=== PATIENT | female | born 1960 | race Caucasian/White ===

== ENCOUNTER 2023-08-30 09:22 | Observation (INO) ==
--- NOTE | 2023-07-26 13:38 | PAT Medication Instructions ---
Medication Instructions Date of Service July 26, 2023 Home Medications albuterol sulfate 90 mcg/actuation aerosol inhaler (Ventolin HFA) 2 inh inhalation QID PRN amlodipine 5 mg tablet 5 mg PO QAM cholecalciferol (vitamin D3) 25 mcg (1,000 unit) tablet (Vitamin D3) 25 mcg PO QPM escitalopram oxalate 20 mg tablet (Lexapro) 20 mg PO QAM furosemide 20 mg tablet (Lasix) 20 mg PO QAM levothyroxine 100 mcg tablet 100 mcg PO QAM metformin 500 mg tablet 500 mg PO BID omeprazole 40 mg capsule,delayed release 40 mg PO HS potassium chloride 10 mEq tablet,extended release 10 meq PO QAM rosuvastatin 10 mg tablet (Crestor) 10 mg PO HS DO NOT take the morning of surgery furosemide 20 mg tablet (Lasix) 20 mg PO QAM metformin 500 mg tablet 500 mg PO BID potassium chloride 10 mEq tablet,extended release 10 meq PO QAM Take morning of surgery With a small sip of water, OTHERWISE NOTHING TO EAT OR DRINK AFTER MIDNIGHT: albuterol sulfate 90 mcg/actuation aerosol inhaler (Ventolin HFA) 2 inh inhalation QID PRN(use if needed; please bring with you to hospital day of surgery if possible) amlodipine 5 mg tablet 5 mg PO QAM escitalopram oxalate 20 mg tablet (Lexapro) 20 mg PO QAM levothyroxine 100 mcg tablet 100 mcg PO QAM Take evening before surgery albuterol sulfate 90 mcg/actuation aerosol inhaler (Ventolin HFA) 2 inh inhalation QID PRN(if needed) cholecalciferol (vitamin D3) 25 mcg (1,000 unit) tablet (Vitamin D3) 25 mcg PO QPM metformin 500 mg tablet 500 mg PO BID omeprazole 40 mg capsule,delayed release 40 mg PO HS rosuvastatin 10 mg tablet (Crestor) 10 mg PO HS Other Notes If you have any questions please call us at [phone] or [phone] or [phone] or [phone]
--- NOTE | 2023-08-01 13:24 | Anesthesiology Consultation ---
Date of Service August 01, 2023 Assessment & Plan (1) Encounter for pre-operative examination: - Check BSG AM DOS - Infectious disease screening: Per assessment on 08/01/23: No known infectious disease contacts or current infectious disease symptoms. No noted recent Covid positive test result. - Outpatient joint assessment: Pt currently scheduled for inpatient pathway. If surgeon requests review for outpatient joint pathway, patient is not recommended acceptable candidate for outpatient joint program from anesthesia standpoint based upon available information. - Highly selective vagotomy (1988): Done for hx stomach ulcers. Per patient, did have subsequent episode of HR fluctuations felt r/t to having this procedure (10+ years ago)- no known issues since. Preop EKG done 08/01/23: NSR with sinus arrhythmia at 64bpm. - Patient states she has upcoming visit with PCP prior to surgery. Patient acceptable risk for surgery pending upcoming PCP office visit (Dr. Ayaka Montoya, appt 08/05). Chart Review Chart Review: Acceptable Risk for Surgery and Patient seen in Pre Admission Testing Teaching & Discussion Pre-Anesthesia Teaching/Discussion Notes: Instructed NPO after midnight before surgery,except medications with 15 cc of water. Medication instructions provided according to the PAT guidelines. History Surgery Operation Date: 08/30/23 07:15 Proposed Procedures p Left Total Knee Arthroplasty - Jean-Pierre Srinivasan DO Height/Weight Height: 5 ft 0.5 in Weight: 97.7 kg Allergies Allergy/AdvReac Type Severity Reaction Status Date / Time adhesive Allergy Intermediate Skin Verified 07/27/23 11:46 irritation bupropion Allergy Intermediate Headache Unverified 07/27/23 11:46 (per PCP records) NSAIDS (Non-Steroidal AdvReac Severe Unable to Verified 07/27/23 11:46 Anti-Inflamma take d/t hx duodenal ulcer Medications Home Medications Medication Instructions Recorded Confirmed Last Taken albuterol sulfate 90 mcg/actuation 2 inh inhalation QID PRN sob 07/26/23 07/26/23 Unknown aerosol inhaler (Ventolin HFA) amlodipine 5 mg tablet 5 mg PO QAM 07/26/23 07/26/23 Unknown cholecalciferol (vitamin D3) 25 25 mcg PO QPM 07/26/23 07/26/23 Unknown mcg (1,000 unit) tablet (Vitamin D3) escitalopram oxalate 20 mg tablet 20 mg PO QAM 07/26/23 07/26/23 Unknown (Lexapro) furosemide 20 mg tablet (Lasix) 20 mg PO QAM 07/26/23 07/26/23 Unknown levothyroxine 100 mcg tablet 100 mcg PO QAM 07/26/23 07/26/23 Unknown metformin 500 mg tablet 500 mg PO BID 07/26/23 07/26/23 Unknown omeprazole 40 mg capsule,delayed 40 mg PO HS 07/26/23 07/26/23 Unknown release potassium chloride 10 mEq 10 meq PO QAM 07/26/23 07/26/23 Unknown tablet,extended release rosuvastatin 10 mg tablet (Crestor) 10 mg PO HS 07/26/23 07/26/23 Unknown Past Medical History Medical History Asthma Chronic back pain Depression Diabetes mellitus, type 2 NIDDM GERD (gastroesophageal reflux disease) History of COVID-19 07/2022: moderate flu-like symptoms Hx of basal cell carcinoma Hx of duodenal ulcer (~1988) Hyperlipidemia Hypertension Hypothyroidism Kidney stones no surgical intervention 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 Osteoarthritis Sleep apnea CPAP (compliant) Exercise / Class Metabolic Activity III < 4 Walking/Shop/Light housework (one FS (no CP, + SOB)) Past Family History Family History Father FHx: heart disease Other No family history of adverse response to anesthesia Past Surgical History Surgical History H/O vagotomy highly selective vagotomy (1988) for stomach ulcers Per patient, did have subsequent episode of HR fluctuations felt r/t to having this procedure (10+ years ago)- no issues since History of section x2 (2001, 2003) History of colonoscopy History of esophagogastroduodenoscopy (EGD) History of laparoscopy History of right knee joint replacement Hx of basal cell carcinoma excision Past Anesthesia History No Hx of Anesthesia Complications and No Family Hx of Anesthesia Complications History of PONV No Hx of PONV and No Hx of Motion Sickness Social History Smoking Status: Former smoker Do You Dip or Chew Tobacco: No Smoking End Date: Quit 1998 Hx Alcohol Use: Yes (Very rare) Hx Substance Use: No substance use type: does not use Review of Systems Patient denies chest pain, shortness of breath, fever, chills, cough, wheezing, palpitations. Physical Exam Vital Signs VITALS BP 128/87 P 68 TEMP 98.2 SP02 97%RA RESP 18 PHYSICAL Full cervical extension range of motion. Full TMJ range of motion. TMD 3.5 finger breaths Mallampati Score 3 Dentition: missing molars Lungs: clear throughout to auscultation Cardiac: regular rate and rhythm, no murmurs noted Spine: normal Carotid arteries: negative bruit Extremities: no LE edema Lab Results Anesthesia Preop Results Results Anesthesia Widget: WBC 8.67 K/ul (4.8-10.8) 08/01/23 Hgb 13.3 g/dl (12.0-16.0) 08/01/23 Hct 39.3 % (37.0-47.0) 08/01/23 Plt 261 K/uL (130-400) 08/01/23 Na 140 mmol/L (136-145) 08/01/23 K 3.7 mmol/L (3.5-5.1) 08/01/23 Cl 103 mmol/L (98-107) 08/01/23 CO2 27 mmol/L (21-32) 08/01/23 BUN 11 mg/dl (6-23) 08/01/23 Creat 0.64 mg/dl (0.6-1.2) 08/01/23 Glucose Level 176 mg/dl (70-99(Fasting)) H 08/01/23 PT 10.5 Seconds (9.0-12.0) 08/01/23 PTT 29 Seconds (21-31) 08/01/23 INR 1.0 (0.9-1.1) 08/01/23 HA1c 7.2 % (4.5-5.6) H 08/01/23 Urine Color Yellow 08/01/23 Urine Appearance Clear (Clear) 08/01/23 Urine pH 7.5 (4.5-7.5) 08/01/23 Urine Specific [place] 1.008 (1.000-1.030) 08/01/23 Urine Protein Negative (Negative) 08/01/23 Urine Glucose (UA) Negative (Negative) 08/01/23 Urine Ketones Negative (Negative) 08/01/23 Urine Blood Negative (Negative) 08/01/23 Urine Nitrite Negative (Negative) 08/01/23 Urine Bilirubin Negative (Negative) 08/01/23 Urine Urobilinogen Negative (Negative) 08/01/23 Urine Leukocyte Esterase Trace (Negative) H 08/01/23 Blood Type O Positive 08/01/23 Antibody Screen NEGATIVE 08/01/23 Testing Electrocardiogram Date: 08/01/23 NSR with sinus arrhythmia at 64bpm. NS TWA. Chest X-Ray Date: 08/01/23 Findings: + NAD
--- NOTE | 2023-08-05 13:10 | History & Physical Report ---
Date of Service August 05, 2023 date of surgery: 08/30/23 Procedure: Left Total Knee Arthroplasty Surgeon: Jean-Pierre Srinivasan, DO Assessment & Plan (1) Arthritis of knee, left: Plan: Further care discussed with patient and at this point in time has failed conserv ative measures and would like to proceed with a left total knee replacement. Plan on discharge will be home with home health physical therapy. DVT prophylaxiswith TEDs, SCDs and will also place on aspirin 81 mg p.o. b.i.d. for a month postop. Patient will have follow up appointment in our office two weeks post op for staple/suture removal and re-evaluation. Patient otherwise has no other questions or concerns. The risks and benefits have been discussed including, but not limited to, risk of infection, nerve injury, stiffness, loss of motion, failure to improve, etc. Reasonable outcomes and options of treatment were discussed. An explanation of appropriate alternatives to the procedure that may be advantageous were discussed and their risks and benefits, as well as the risks and benefits of not proceeding with treatment. I offered to answer any additional inquiries concerning the treatment involved. All the patient's questions were answered. The patient is agreeable, understanding of the treatment plan and alternatives, and wishes to proceed with the treatment plan. Please note the above document was generated using voice recognition software. It may contain grammatical, syntax or spelling errors. Any formal questions or concerns about the content, text or information contained within the body of this dictation should be directly addressed to the provider for clarification History of Present Illness Chief Complaint: left knee pain Primary Care Provider: Korey Rousseau is a 63-year-old female who presented for preop evaluation prior to upcoming left total knee arthroplasty. She had a longstanding history of left knee pain which is gradually worsened and is now affecting her daily activities including walking standing using stairs. She has undergone previous corticosteroid injection with no improvement, she is not able to take anti- inflammatories due to history of duodenal ulcer. At this point time she has failed conservative measures and wishes to proceed with a left total knee replacement Allergies Allergy/AdvReac Type Severity Reaction Status Date / Time adhesive Allergy Intermediate Skin Verified 07/27/23 11:46 irritation bupropion Allergy Intermediate Headache Unverified 07/27/23 11:46 (per PCP records) NSAIDS (Non-Steroidal AdvReac Severe Unable to Verified 07/27/23 11:46 Anti-Inflamma take d/t hx duodenal ulcer Home Medications Medication Instructions Recorded Confirmed Type albuterol sulfate 90 mcg/actuation 2 inh inhalation QID PRN sob 07/26/23 07/26/23 History aerosol inhaler (Ventolin HFA) amlodipine 5 mg tablet 5 mg PO QAM 07/26/23 07/26/23 History cholecalciferol (vitamin D3) 25 25 mcg PO QPM 07/26/23 07/26/23 History mcg (1,000 unit) tablet (Vitamin D3) escitalopram oxalate 20 mg tablet 20 mg PO QAM 07/26/23 07/26/23 History (Lexapro) furosemide 20 mg tablet (Lasix) 20 mg PO QAM 07/26/23 07/26/23 History levothyroxine 100 mcg tablet 100 mcg PO QAM 07/26/23 07/26/23 History metformin 500 mg tablet 500 mg PO BID 07/26/23 07/26/23 History omeprazole 40 mg capsule,delayed 40 mg PO HS 07/26/23 07/26/23 History release potassium chloride 10 mEq 10 meq PO QAM 07/26/23 07/26/23 History tablet,extended release rosuvastatin 10 mg tablet (Crestor) 10 mg PO HS 07/26/23 07/26/23 History Past Med/Surg History Medical History 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 History of COVID-19 07/2022: moderate flu-like symptoms Depression Kidney stones no surgical intervention Chronic back pain Osteoarthritis Hx of basal cell carcinoma Hypertension Hyperlipidemia Hx of duodenal ulcer (~1988) Hypothyroidism Diabetes mellitus, type 2 NIDDM GERD (gastroesophageal reflux disease) Asthma Sleep apnea CPAP (compliant) Surgical History History of esophagogastroduodenoscopy (EGD) History of colonoscopy Hx of basal cell carcinoma excision History of right knee joint replacement History of section x2 (2001, 2003) History of laparoscopy H/O vagotomy highly selective vagotomy (1988) for stomach ulcers Per patient, did have subsequent episode of HR fluctuations felt r/t to having this procedure (10+ years ago)- no issues since Family History Father FHx: heart disease Other No family history of adverse response to anesthesia Social History Smoking Status: Former smoker Tobacco Type: Cigarettes Second Hand Exposure: No; Do You Dip or Chew Tobacco: No; Hx Alcohol Use: Yes (Very rare) Hx Substance Use: No Preferred Language: [place] Communication Ability: Effective Supervisor Picking Crew Required: No Beliefs That Will Affect Care: None Current Living Situation: Spouse Feels Safe at Home: Yes Assistive Devices: Glasses Review of Systems Review of Systems: All systems reviewed & are unremarkable except as noted in HPI & below Constitutional: no fever, no chills and no sweats Respiratory: no cough and no dyspnea Cardiovascular: no chest pain, no dyspnea and no orthopnea Gastrointestinal: no abdominal pain, no nausea and no vomiting Musculoskeletal: as per Subjective / HPI Physical Exam Physical Exam: HT: 5ft WT: 97.7kg Constitutional: WD/WN, vitals as above no acute distress Respiratory: normal respiratory effort, lungs clear to auscultation no respiratory distress, no labored breathing and does not use accessory muscles Cardiovascular: RRR, no murmur, no edema Gastrointestinal (Abdomen): normal bowel sounds, soft, nontender, no hepatosplenomegaly Musculoskeletal: Knee: + knee abnormal to inspection (LEFT KNEE), + effusion (+1 effusion), + limited ROM of knee (ROM 0/3/110), + knee ROM with crepitation, + joint line tenderness (medial joint line) and + Genoveva's sign positive; no deformity, no skin erythema, no ecchymosis, no valgus laxity, no varus laxity, anterior drawer test negative, Alvino's sign negative and pivot shift test negative Results & Data Results & Data Diagnostic Findings Left Knee X-ray: left knee series confirms degenerative changes to the left knee, greatest medial compartments and patellofemoral joint, showing joint space narrowing, osteophyte formation and subchondral sclerosis. no acute bony pathology noted.
[~2023-08-30 09:22] MED LIST: BUPIVACAINE 0.5 % 5 MG/1 ML PF 10ML VIAL ONE; ROPIVACAINE 0.5% 5 MG/ML 30 ML VIAL ONE
--- OUTSIDE RECORDS SUMMARY | 2023-08-30 09:26 | External Medical Summary ---
Author Name Unknown Address Unknown Organization [id number]:[facility] [place] [address] [place] [id number] Laboratory Report Ordering Provider Test Date Status NGOC SANCHES 08/05/2023 11:00:00 Final Observation Date Value Abnormality Reference (Units) Status Bacteria identified in Specimen by Culture 08/05/2023 11:00:00 No significant growth Final Test: Culture, Urine, Quant itative
Specimen Source: Urine, Unspecified
Specimen Type: Urine
Specimen Date: 08/05/2023 11:00 AM
Result Date: 08/06/2023 2:33 PM
Result Status: Final result
Resulting Lab: [facility] [place]
[address]
[place] [id number]

CULTURE

No significant growth

null Performing Location [facility] [place] [facility] [address] [facility] [id number]
--- NOTE | 2023-08-30 09:41 | History & Physical Bridge Note ---
Date of Service August 30, 2023 History & Physical Bridge Note I have examined the patient, reviewed the History & Physical and in the interval since the performance of the History & Physical I have noted the following changes of clinical significance: no changes noted
[2023-08-30] MEDS: LR 15ML/HR IV SCH (10:22)
[2023-08-30] MEDS: GABAPENTIN 300 MG CAP PO SCH (10:23)
[2023-08-30] MEDS: FAMOTIDINE 20 MG TAB PO SCH (10:23)
[2023-08-30] MEDS: LR 60ML/HR IV SCH (10:23)
[2023-08-30] MEDS: ACETAMINOPHEN 500 MG TAB PO SCH ×2 (10:23→21:27)
[2023-08-30] MEDS: dexAMETHasone**PF** 10 MG/ML VIAL IV SCH (10:24)
[2023-08-30] MEDS: METOCLOPRAMIDE HCL 10 MG TABLET PO SCH (10:24)
[2023-08-30] MEDS ORDERED: MIDAZOLAM HCL 1 MG/ML 2ML VIAL ONE (10:55)
[2023-08-30] MEDS ORDERED: fentaNYL citrate PF 100 MCG/2 ML VIAL ONE (10:56)
[2023-08-30] MEDS ORDERED: PROPOFOL IV EMULSION 10 MG/ML 20 ML VIAL IV ONE (11:17)
[2023-08-30] MEDS ORDERED: LIDOCAINE 2% 2 ML VIAL/AMP(20MG/ML) INFIL ONE (11:17)
[2023-08-30] MEDS ORDERED: ONDANSETRON INJ 2 MG/ML 2 ML VIAL IV PRN ×2 (11:55→16:05)
[2023-08-30] MEDS ORDERED: HYDROmorphone INJ 2 MG/ML SYR/VIAL IV PRN (11:55)
[2023-08-30] MEDS ORDERED: fentaNYL citrate PF 100 MCG/2 ML VIAL IV PRN (11:55)
[2023-08-30] MEDS ORDERED: ePHEDrine sulfate 50 MG/ML AMP IV PRN (11:55)
[2023-08-30] MEDS ORDERED: PROMETHAZINE HCL 6.25 MG in SODIUM CHLORIDE 0.9% 50 ML IV PRN (11:55)
[2023-08-30] MEDS ORDERED: ATROPINE SULFATE 0.1 MG/ML 10ML SYR IV PRN (11:55)
[2023-08-30] MEDS: TRANEXAMIC ACID 1,000 MG **IV Pre-op IV SCH (12:06)
[2023-08-30] MEDS: ROPIV 0.5% 246mg, Ketorolac 30mg, EPINEPHrine 0.5mg in NSS INFIL SCH (13:01)
--- NOTE | 2023-08-30 13:25 | Operative Report ---
Post Operative Report Pre & Post Diagnosis Operation Date: 08/30/23 11:15 Pre-Op Diagnosis: Left Knee Osteoarthritis Post-Op Diagnosis: Left Knee Osteoarthritis I identified the patient and participated in the time-out.: Yes Procedure Operation Date: 08/30/23 11:15 Actual Procedures p Left Total Knee Arthroplasty(Left)Utilizing [employer] journey 2 patient- matched total knee arthroplasty size femur 4 tibia 2 poly 11 patella 29 jaycob - Jean-Pierre Srinivasan DO Surgeon Jean-Pierre Srinivasan DO Social Welfare Clerk [place] Estimated Blood Loss 5 Findings Consistent with Post-Op Diagnosis Patient presents with severe end-stage tricompartmental DJD of the left knee with hyperextension of approximately 7 degrees eburnated [id number] marginal osteophytes subchondral cystic changes with moderate to large effusion Specimens Bone and cartilage Drains Medium bore Hemovac Anesthesia Type MAC Spinal Regional Complications none Disposition Accompanied Patient To Recovery: No Disposition: Recovery Room Indications Patient presents with a left knee severe end-stage tricompartmental DJD having failed attempted conservative management occluding physical therapy anti- inflammatories relative rest activity modification corticosteroid injections viscosupplementation above intraoperative findings were noted Description of Procedure After proper prepping and draping of the left lower extremity anterior midline incision was made over the region of the extensor extensor mechanism after meticulous hemostasis was obtained and maintained in subcutaneous tissues a medial parapatellar incision was made The patella was subluxed lateralward the medial lateral gutter were cleaned from any hypertrophic synovitis and scar tissue of the distal femoral block was placed and the distal femoral osteotomy cut was made subsequently the chamfers anterior and posterior osteotomy cuts were made utilizing the 4-in-1 block the tibia was subsequently subluxed anteriorward medial and ateral meniscal remnants were excised in their entirety remnants of the anterior and posterior cruciate ligaments were excised in their entirety excellent exposure of the proximal tibia was obtained the tibial osteotomy guide was placed on the proximal tibial osteotomy cut was made once again the knee was irrigated with copious amounts of sterile saline solution the patella was subsequently everted lateralward thickened scar tissue around the patella was removed the patella was subsequently cut utilizing a freehand technique and was drilled prepared for final preparation and placement of patella socially flexion-extension gaps were checked and the equal and symmetric trials were placed to the appropriate femoral and tibial trials with poly-spacer being placed for equal flexion and extension gaps and full range of motion including extension to 0 and flexion to 140 the trial components after having been taken to recovery range of motion was subsequently removed meticulous hemostasis was obtained and maintained subsequently a knee block injection of joint cocktail including ropivacaine 0.5% 150 mg. Bupivacaine 0.5% epinephrine 1-200,030 mL's toradol 30 mg dexamethasone 4 mg ketamine 10 mg clonidine 100 micrograms normal saline solution 30 mg was infiltrated into the soft tissues of the posterior knee medial lateral gutters and periosteal synovium special attention was paid to protect neurovascular structures at all times subsequently trial components having been removed the knee was irrigated with sterile saline solution. debris was removed the proximal tibia was subsequently prepared and was made ready for the placement of the tibial component tibial component was also cemented and tamped into position the femoral component was subsequently placed and cemented in the position the patellar component was subsequently cemented in position because hemostasis once again obtained and maintained wound having been thoroughly irrigated with debridement and debridement lavage was performed as well as a medial parapatellar incision closed with #1 Vicryl in interrupted fashion subcutaneous was closed with #2 Vicryl skin was closed with skin clips. PA-C was necessary for prepping and drapping as well as wound closure of deep fascia Sub cutaneous tissue and skin and was necessary for the case. A sterile compressive dressing was placed patient was taken to recovery in stable condition of report dictated by Craig I attest to the content of the Intraoperative Record and any orders documented therein. Any exceptions are noted below.Due to the complex nature of the procedure, the entire surgery was performed with the operational assistance ofFELICITY Pacheco. The logistics assistant, under direct supervision, was involved in the actual performance of all aspects of the surgical procedure including hemostasis, tissue retraction and incision, instrument management, patient positioning, and wound closure. I attest to the content of the Intraoperative Record and any orders documented therein. Any exceptions are noted below.
--- NOTE | 2023-08-30 14:41 | XRay Report ---
LEFT KNEE 2 VIEWS History: Left total knee arthroplasty. Degenerative arthritis. Postop. FINDINGS: The patient is status post a left total knee arthroplasty. The hardware is intact. No fract ure or dislocation. Skin german and surgical drains are in place. IMPRESSION: Left total knee arthroplasty. No evidence for hardware complication. ACT 112: Negative or not required by law. Electronically signed by: Lior Riley M.D. 08/30/2023 2:40 PM
--- NOTE | 2023-08-30 14:55 | Anesthesiology Progress Note ---
Date of Service August 30, 2023 Anesthesia Post Procedure Vital Signs Vital Signs: Temp Pulse Pulse Resp BP Pulse Ox O2 Del Method 08/30/23 14:50 73 16 118/69 96 Nasal Cannula 08/30/23 14:40 36.6 C 68 16 113/75 96 Nasal Cannula 08/30/23 14:30 72 16 125/75 96 Nasal Cannula 08/30/23 14:20 75 16 126/78 96 Nasal Cannula 08/30/23 14:10 74 15 124/69 97 Nasal Cannula 08/30/23 14:00 77 16 101/68 97 Oxymask 08/30/23 13:54 36.8 C 77 17 104/67 96 Oxymask 08/30/23 09:55 Room Air 08/30/23 09:55 36.7 C 60 20 128/83 95 Room Air O2 Flow Rate 08/30/23 14:50 2 08/30/23 14:40 2 08/30/23 14:30 2 08/30/23 14:20 2 08/30/23 14:10 2 08/30/23 14:00 5 08/30/23 13:54 5 08/30/23 09:55 08/30/23 09:55 Transfer of Care Handoff Completed per policy Notes Mental Status: alert / awake / arousable Patient Amnestic to Procedure: Yes Nausea / Vomiting: adequately controlled Pain: adequately controlled Airway Patency, RR, SpO2: stable & adequate BP & HR: stable & adequate Hydration State: stable & adequate Neuraxial Anesthesia: was administered and sensory block is resolving Anesthetic Complications: no major complications apparent
[2023-08-30] MEDS: ORTHO JOINT ANESTHETIC ONE (16:04)
[2023-08-30] MEDS: TRANEXAMIC ACID 1,000 MG **IV Intra-op IV SCH (16:04)
[2023-08-30] MEDS: ceFAZolin 2000MG 2,000 MG/15 ML SYR IV SCH ×2 (16:04→18:49)
[2023-08-30] MEDS ORDERED: METOCLOPRAMIDE HCL INJ 5 MG/ML 2 ML VIAL IV PRN (16:05)
[2023-08-30] MEDS ORDERED: MAGNESIUM HYDROXIDE SUSP 30 ML UDC PO PRN (16:05)
[2023-08-30] MEDS ORDERED: ALBUTEROL HFA 8 GM INHALER INH PRN (16:05)
[2023-08-30] MEDS ORDERED: HYDROmorphone INJ 1 MG/ML SYRINGE IV PRN (16:05)
[2023-08-30] MEDS ORDERED: bisacodyL 10 MG SUPP PR PRN (16:05)
[2023-08-30] MEDS ORDERED: NALOXONE HCL 0.4 MG/1 ML VIAL/CARP IV PRN (16:05)
[2023-08-30] MEDS ORDERED: PHARMACY GLYCEMIC MGMT CONSULT PRN (16:05)
[2023-08-30] MEDS ORDERED: diphenhydrAMINE Capsule 25 MG CAP PO PRN (16:05)
[2023-08-30] MEDS: SODIUM CHLORIDE 0.9% 1,000 ML IV SCH (16:44)
[2023-08-30] MEDS: KETOROLAC TROMETHAMINE 15 MG/ML VIAL IV SCH (16:45)
[2023-08-30] MEDS: INSULIN ASPART PER UNIT CHARGE SC SCH (17:33)
[2023-08-30] MEDS: ASPIRIN 81 MG ECTAB PO SCH (20:07)
[2023-08-30] MEDS: CHOLECALCIFEROL 25 MCG (1000 UNITS) TAB PO SCH (20:07)
[2023-08-30] MEDS: SENNA 8.6 MG TAB PO SCH (20:08)
[2023-08-30] MEDS: ROSUVASTATIN CALCIUM 10 MG TAB PO SCH (20:08)
[2023-08-30] MEDS: DOCUSATE SODIUM 100 MG CAP PO SCH (20:08)
[2023-08-30] MEDS: LANTUS PER UNIT CHARGE SC SCH (21:23)
[2023-08-30] MEDS: oxyCODONE HCL IR 5 MG TAB (IMMEDIATE RELEASE) PO PRN (23:25)
[2023-08-31] MEDS: INSULIN ASPART PER UNIT CHARGE SC SCH (00:16)
[2023-08-31 06:28] LABS: Hematocrit (blood only) 31.7 % (37.0-47.0); Hemoglobin 10.3 g/dl (12.0-16.0); Mean Corpuscular Hemoglobin 28.5 pg (25.0-34.0); Mean Corpuscular Hgb Conc 32.5 g/dL (32.0-36.0); Mean Corpuscular Volume 87.6 fL (80.0-100.0); Mean Platelet Volume 10.5 fL (9.4-12.4); Platelet Count 239 K/uL (130-400); RDW Coefficient of Variation 12.2 % (11.5-14.5); RDW Standard Deviation 39.4 fL (36.4-46.3); Red Blood Count 3.62 M/uL (4.20-5.40); White Blood Count 16.31 K/ul (4.8-10.8)
[2023-08-31 06:40] LABS: Calcium 8.5 mg/dl (8.6-10.3); Creatinine Clr Calc Pharmacy 107.9 ml/min; Est GFR (African American) 115.8 ml/min; Est GFR (Non-African American) 99.9 ml/min
--- NOTE | 2023-08-31 06:44 | Orthopedic Progress Note ---
Date of Service August 31, 2023 Assessment & Plan (1) History of total left knee replacement: Plan: POD #1 s/p Left TKA pt/ot dvt proph with VALERI/SCD/ASA plan for d/c home with HHPT if available Admission and Anticipated Discharge Date Admission Date: August 30, 2023 Subjective POD #1 s/p Left TKA Review of Systems Constitutional: no fever, no chills and no sweats Respiratory: no cough and no dyspnea Cardiovascular: no chest pain and no dyspnea Gastrointestinal: no abdominal pain, no nausea and no vomiting Physical Exam Physical Exam: Vital Signs Temp 36.8 C 08/31/23 03:23 Pulse 74 08/31/23 03:23 Resp 16 08/31/23 03:23 BP 110/66 08/31/23 03:23 Pulse Ox 96 08/31/23 03:23 O2 Del Method Room Air, CPAP 08/31/23 03:23 O2 Flow Rate 1 08/30/23 17:57 Intake & Output 08/30/23 08/30/23 08/31/23 06:59 18:59 06:59 Intake Total 2000 / 3800 1800 / 3800 Output Total 65 / 1140 1075 / 1140 Balance 1935 / 2660 725 / 2660 Weight 95.8 kg Intake: IV 100 / 1100 1000 / 1100 Lactated Ringe r's 1,000 ml @ 15 0 / 0 mls/hr IV .Q24 H KEYONNA Rx#: [id number] Sodium Chlorid e 0.9% 1,000 ml @ 1000 / 1000 100 mls/hr IV .Q10H KEYONNA Rx#: [id number] Tranexamic Aci d / 0.7% NaCl 1, 100 / 100 000 mg In 100 ml @ 600 mls/hr IV TODAY@0600 KEYONNA Rx#:[id number] IV Perioperative 1900 / 1900 Oral 800 / 800 Output: Urine 1000 / 1000 Estimated Blood Loss 5 / 5 Drain Output 60 / 135 75 / 135 Left Knee Hemo vac 60 / 135 75 / 135 Other: # Unmeasured Voi ds 1 1 Weight Measureme nt Method Standing Scale Musculoskeletal: Left Leg: NVDI, calf SNT, negative sharon sign. DP palpable, able to wiggle toes/ankle movement without difficulty. dressing clean dry and intact. Results & Data Vital Signs (Past 12 Hours) Vital Signs Temp Pulse Resp BP Pulse Ox O2 Del Method 08/31/23 03:23 36.8 C 74 16 110/66 96 Room Air, CPAP 08/30/23 23:19 36.8 C 75 18 112/66 96 Room Air 08/30/23 19:30 36.8 C 81 18 116/67 94 Room Air Laboratory Results Laboratory Results WBC 16.31 K/ul (4.8-10.8) H 08/31/23 05:22 RBC 3.62 M/uL (4.20-5.40) L 08/31/23 05:22 Hgb 10.3 g/dl (12.0-16.0) L 08/31/23 05:22 Hct 31.7 % (37.0-47.0) L 08/31/23 05:22 MCV 87.6 fL (80.0-100.0) 08/31/23 05:22 MCH 28.5 pg (25.0-34.0) 08/31/23 05:22 MCHC 32.5 g/dL (32.0-36.0) 08/31/23 05:22 RDW Std Deviation 39.4 fL (36.4-46.3) 08/31/23 05:22 RDW Coeff of Rowan 12.2 % (11.5-14.5) 08/31/23 05:22 Plt Count 239 K/uL (130-400) 08/31/23 05:22 MPV 10.5 fL (9.4-12.4) 08/31/23 05:22 Sodium 137 mmol/L (136-145) 08/31/23 05:22 Potassium 4.0 mmol/L (3.5-5.1) 08/31/23 05:22 Chloride 105 mmol/L (98-107) 08/31/23 05:22 Carbon Dioxide 25 mmol/L (21-32) 08/31/23 05:22 Anion Gap 7 (3-11) 08/31/23 05:22 BUN 14 mg/dl (6-23) 08/31/23 05:22 Creatinine 0.56 mg/dl (0.6-1.2) L 08/31/23 05:22 Est Cr Clr Drug Dosing 107.9 ml/min 08/31/23 05:22 Est GFR ( Amer) 115.8 ml/min 08/31/23 05:22 Est GFR (Non-Af Amer) 99.9 ml/min 08/31/23 05:22 BUN/Creatinine Ratio 25.0 (10-20) H 08/31/23 05:22 Glucose 147 mg/dl (70-99(Fasting)) H 08/31/23 05:22 POC Glucose 143 mg/dl (70-99) H 08/31/23 03:47 Calcium 8.5 mg/dl (8.6-10.3) L 08/31/23 05:22 Impressions Knee X-Ray 08/30/23 12:40 LEFT KNEE 2 VIEWS History: Left total knee arthroplasty. Degenerative arthritis. Postop. FINDINGS: The patient is status post a left total knee arthroplasty. The hardware is intact. No fracture or dislocation. Skin german and surgical drains are in place. IMPRESSION: Left total knee arthroplasty. No evidence for hardware complication. ACT 112: Negative or not required by law. Electronically signed by: Lior Riley M.D. 08/30/2023 2:40 PM
--- NOTE | 2023-08-31 06:50 | Discharge Summary ---
Date of Service date of discharge: August 31, 2023 date of admission: 08/30/23 Admission HPI Per Admitting Provider Onelia is a 63-year-old female who presented for preop evaluation prior to upcoming left total knee arthroplasty. She had a longstanding history of left knee pain which is gradually worsened and is now affecting her daily activities including walking standing using stairs. She has undergone previous corticosteroid injection with no improvement, she is not able to take anti- inflammatories due to history of duodenal ulcer. At this point time she has failed conservative measures and wishes to proceed with a left total knee replacement Principal Diagnosis left knee arthritis Discharge Exam Vital Signs Temp 36.8 C 08/31/23 03:23 Pulse 74 08/31/23 03:23 Resp 16 08/31/23 03:23 BP 110/66 08/31/23 03:23 Pulse Ox 96 08/31/23 03:23 O2 Del Method Room Air, CPAP 08/31/23 03:23 O2 Flow Rate 1 08/30/23 17:57 Intake & Output 08/30/23 08/30/23 08/31/23 06:59 18:59 06:59 Intake Total 2000 / 3800 1800 / 3800 Output Total 65 / 1140 1075 / 1140 Balance 1935 / 2660 725 / 2660 Weight 95.8 kg Intake: IV 100 / 1100 1000 / 1100 Lactated Ringer's 1,000 ml @ 15 0 / 0 mls/hr IV .Q24H [facility]ON[facility] Rx#: [id number] Sodium Chloride 0.9% 1,000 ml @ 1000 / 1000 100 mls/hr IV .Q10H [facility] Rx#: [id number] Tranexamic Acid / 0.7% NaCl 1, 100 / 100 000 mg In 100 ml @ 600 mls/hr IV TODAY@0600 KEYONNA Rx#:[id number] IV Perioperative 1900 / 1900 Oral 800 / 800 Output: Urine 1000 / 1000 Estimated Blood Loss 5 / 5 Drain Output 60 / 135 75 / 135 Left Knee Hemovac 60 / 135 75 / 135 Other: # Unmeasured Voids 1 1 Weight Measurement Method Standing Scale Musculoskeletal left knee: NVDI, calf SNT, negative sharon sign. DP palpable, able to wiggle toes/ankle movement without difficulty. dressing clean dry and intact. Discharge Data Allergies Allergy/AdvReac Type Severity Reaction Status Date / Time adhesive Allergy Intermediate Skin Verified 08/30/23 09:52 irritation bupropion Allergy Intermediate Headache Verified 08/30/23 09:52 (per PCP records) NSAIDS (Non-Steroidal AdvReac Severe Unable to Verified 08/30/23 09:52 Anti-Inflamma take d/t hx duodenal ulcer Procedures Performed Operation Date: 08/30/23 11:15 Actual Procedures p Left Total Knee Arthroplasty(Left) - Jean-Pierre Thakur DO Ordered Studies 08/30/23 05:00 US - OR guided needle placemen Routine Hospital Course (1) History of total left knee replacement: POD #1 s/p Left TKA pt/ot dvt proph with VALERI/SCD/ASA plan for d/c home with HHPT if available Total Time Total Time Spent Total Time Spent (In Minutes): 20 Discharge Plan Discharge Items Patient Disposition: Home - Home Health Services Reason For Visit: Left Knee Osteoarthritis Discharge Diagnosis: left total knee replacement Activity: Per Instructions section Weightbearing Comment: WBAT with walker Non-emergency contact: Surgeon Call non-emergency contact if: you have any medication questions, your temperature is above 101, your wound has increased redness, your wound has increased drainage and your wound pain has increased Follow-up/Referrals: Ayaka Montoya MD [Primary Care Provider] - Diet: Carb Consistent or DM2 Addtl Attending Provider Instructions: ACTIVITY RECOMMENDATIONS: SELF CARE INSTRUCTIONS AFTER TOTAL KNEE REPLACEMENT A. You may need to continue a physical therapy program after discharge from the hospital. There are several options available to you. Your doctor will assist you in selecting the best one for you. 1. An out-patient facility 2 to 3 times a week for therapy or home therapy. 2. Continue working on all exercises taught to you in the hospital. Your goals should be to increase bending of your knee to 90 degrees and beyond and to fully straighten your knee. B. You may progress at your own pace from walking with a walker or crutches to a cane; then to no assistive devices. C. Make walking a part of your daily routine. Be up as much as comfortable with rest periods throughout the day. Rest with leg elevation is very important. Use the ice wrap frequently for the first 3-4 weeks. D. There are no restrictions on activities. You may ride in a car, shop, participate in group tester and all social activities. E. Wear the long elastic stockings (VALERI hose) 20 hours a day for 2 weeks after surgery. They can be removed several times a day for laundering and for a bath. F. You may shower, no tub baths until cleared by your doctor. SPECIAL CARE INSTRUCTIONS: VERY IMPORTANT TO READ AND REVIEW A. There are a few signs you need to watch for after you are home. Call [facility] if you notice any of the followin. Increased severe knee pain. Some pain is expected especially when you exercise. 2. Increased swelling in your leg or knee; pain or swelling of the calf muscle in either lower leg. 3. Any fluid drainage from the incision. 4. Shortness of breath or chest pain. B. Please call [facility] [place], [place] at if you have any concerns or questions about your operation or recovery. The doctor or his nurse will return your call promptly. C. You must take antibiotics before dental work, bladder, bowel or other surgery. Your doctor will provide you with a permanent care to carry describing this precaution. IMPORTANT: * REMEMBER TO TAKE ASPIRIN, 81 MG, TWICE DAILY FOR 4 WEEKS UNLESS OTHERWISE DIRECTED. THIS IS YOUR BLOOD THINNER. * HIGH RISK PATIENTS MAY BE PRESCRIBED A STRONGER BLOOD THINNER. THIS WILL BE PROVIDED AT DISCHARGE. * CALL IF INCREASED PAIN, REDNESS, DRAINAGE OR FEVER GREATER THAT 101. * WEAR VALERI HOSE 20 HOURS PER DAY FOR 2 WEEKS. DRESSING INSTRUCTIONS * DONNY Dressing- This is a large suction dressing covering your incision. This will help pull any excess drainage from the wound and allow your incision to heal properly. You may shower with this if you can keep the unit outside of the shower. If any bleeding or leakage is noted please call your doctor's office. This will remain on your incision for 7 days and then should be removed. This can be done yourself or by the home nursing staff if applicable. The entire unit is disposable once removed. Once removed, keep incision clean and dry. If redness or drainage is noted, please call your surgeon. ONCE DONYN IS REMOVED, FOLLOW THESE INSTRUCTIONS: DERMABOND Prineo- This is a mesh tape dressing that is covered with glue. It should remain in place until the incision is properly healed, usually 10-14 days. This dressing is designed to naturally slough off. You may trim the excess mesh tape as it peels off. Incision may be briefly wet in a shower. Dry immediately by blotting with a clean, dry towel. Do not bath or swim until instructed by your doctor. Do not scratch, rub, or pick at the dressing. Do not apply any topical ointments or lotions until dressing is completely removed and/or instructed by your doctor. There may be a small piece of suture material at one end of your incision. Do not pull or trim this. If it is bothersome or catching on clothing, you may cover it with a band-aid. IF INCISION IS LEAKING THROUGH DRESSING, CALL THE OFFICE . FOLLOW UP VISIT: If appointment is not already scheduled: Please call [facility] to make a follow-up appointment for 2 weeks after your surgery at . Pending Studies at Discharge: No Stand-Alone Forms: [facility] Medications and DC Order Prescriptions: New acetaminophen 500 mg tablet 1,000 mg PO Q8 21 Days Qty: 126 0RF aspirin 81 mg tablet,delayed release (DR/EC) 81 mg PO BID 30 Days Qty: 60 0RF cefadroxil 500 mg capsule 500 mg PO BID 14 Days Qty: 28 0RF docusate sodium 100 mg Capsule 100 mg PO BID Qty: 20 0RF oxycodone 5 mg tablet 5 - 10 mg PO Q6H PRN (Reason: pain) Qty: 30 0RF Rx Instructions: ongoing therapy, supervising dr monica thakur. max 6 tabs in 24 hours. surgery 08/30/23 Continued metformin 500 mg Tablet 500 mg PO BID potassium chloride 10 mEq Tablet Extended Release 10 meq PO QAM amlodipine 5 mg Tablet 5 mg PO QAM omeprazole 40 mg Capsule,Delayed Release(Dr/Ec) 40 mg PO HS levothyroxine 100 mcg Tablet 100 mcg PO QAM furosemide [Lasix] 20 mg Tablet 20 mg PO QAM albuterol sulfate [Ventolin HFA] 90 mcg/actuation Hfa Aerosol Inhaler 2 inh INHALATION QID PRN (Reason: sob) escitalopram oxalate [Lexapro] 20 mg Tablet 20 mg PO QAM rosuvastatin [Crestor] 10 mg Tablet 10 mg PO HS cholecalciferol (vitamin D3) [Vitamin D3] 25 mcg (1,000 unit) Tablet 25 mcg PO QPM Admission Data Admit Date/Time: 08/30/23 12:40 Attending Provider: Jean-Pierre Thakur Admit Provider: Jean-Pierre Thakur Primary Care Provider: Ayaka Montoya
[2023-08-31] MEDS: amLODIPine BESYLATE 5 MG TAB PO SCH (07:54)
[2023-08-31] MEDS: LEVOTHYROXINE SODIUM 100 MCG TABLET PO SCH (07:54)
[2023-08-31] MEDS: ESCITALOPRAM OXALATE 20 MG TAB PO SCH (07:54)
[2023-08-31] MEDS: MULTIVITAMIN TAB PO SCH (07:57)
[2023-08-31] MEDS: POTASSIUM CHLORIDE 10 MEQ TABCR PO SCH (08:01)
== END 2023-08-31 10:45 | disposition home health service (06) ==
LOC: ASU 09:22 → PACUINP 09:22 → 3E 16:06